=== PATIENT | female | born 1950 | race Caucasian/White ===

== ENCOUNTER → 2020-12-29 | Outpatient (CLI) | payer MEDICARE, OTHER ==
--- NOTE | 2020-12-29 12:09 | 2DMMODE ---
[place] [id number] 2 D/M-MODE ECHOCARDIOGRAM Name: JJ RAMIREZ Room: [facility].#: [id number] Admission: 12/29/20 Attend Phys: Monae Garcia DO Discharge: Date of : 54 Date of Service: 12/29/20 1208 Report #: [id number] THIS REPORT FOR: cc: Monae Garcia Maggie M. DO Blick,Bharath Styles MD [facility] ~ APPROVED REPORT Study performed: 12/29/2020 11:46:29 EXAM: Comprehensive 2D, Doppler, and color-flow Echocardiogram/ Bubble Study Patient Location: Out-Patient BSA: 2.12 HR: 82 bpm BP: 123/80 mmHg Other Information Study Quality: Fair Indications TIA Echo Enhancing Agent Indication: Rule out Shunt Agent(s) / Amount(s) Used: Agitated Saline 10 cc 2D Dimensions IVSd: 11.16 (7-11mm) LVOT Diam: 20.94 (18-24mm) LVDd: 51.81 mm PWd: 9.57 (7-11mm) Ascending Ao: 28.99 (22-36mm) LVDs: 37.56 (25-40mm) Aortic Root: 28.83 mm Volumes Left Atrial Volume (Systole) LA ESV Index: 30.80 mL/m2 Aortic Valve AoV Peak Morgan.: 1.14 m/s AO Peak Gr.: 5.22 mmHg LVOT Max P.71 mmHg AO Mean Gr.: 3.18 mmHg LVOT Mean P.35 mmHg LVOT Max V: 0.82 m/s AO V2 VTI: 22.63 cm LVOT Mean V: 0.53 m/[place] [address] 2 D/M-MODE ECHOCARDIOGRAM Name: JJ RAMIREZ Room: [facility] Kevin#: [id number] Admission: 12/29/20 Attend Phys: Monae Garcia DO Discharge: Date of : 54 Date of Service: 12/29/20 1208 Report #: [id number] DIANNA (VTI): 2.24 cm2 LVOT V1 VTI: 14.70 cm Mitral Valve E/A Ratio: 0.59 MV Decel. Time: 209.27 ms MV E Max Morgan.: 0.42 m/s MV PHT: 60.69 ms MVA (PHT): 3.63 cm2 TDI E/Lateral E': 6.00 E/Medial E': 7.00 Medial E' Morgan.: 0.06 m/s Lateral E' Morgan.: 0.07 m/s Pulmonary Valve PV Peak Morgan.: 0.79 m/s PV Peak Gr.: 2.52 mmHg Left Ventricle The left ventricle is normal size. There is normal LV segmental wall motion. There is normal left ventricular wall thickness. Left ventricular systolic function is normal. The left ventricular ejection fraction is within the normal range. LVEF is 55-60%. Grade I - abnormal relaxation pattern. Right Ventricle The right ventricle is normal size. The right ventricular systolic function is normal. Atria Left atrium is mildly dilated. Injection of bubbles documented no interatrial shunt. The right atrium size is normal. Aortic Valve The aortic valve is not well visualized. No aortic regurgitation is present. There is no aortic valvular stenosis. Mitral Valve The mitral valve is normal in structure. There is no mitral valve regurgitation noted. No evidence of mitral valve stenosis. Tricuspid Valve The tricuspid valve is normal in structure. There is no tricuspid valve regurgitation noted. Pulmonic Valve Pulmonic valve is not well visualized. [place] [address] 2 D/M-MODE ECHOCARDIOGRAM Name: JJ RAMIREZ Room: [facility] TIARA Brown#: [id number] Admission: 12/29/20 Attend Phys: Monae Garcia DO Discharge: Date of : 54 Date of Service: 12/29/20 1208 Report #: [id number] regurgitation. Great Vessels The aortic root is normal in size. IVC is normal in size and collapses >50% with inspiration. Pericardium There is no pericardial effusion. <Conclusion> LVEF is 55-60%. Injection of bubbles documented no interatrial shunt. Left atrium is mildly dilated. <ELECTRONICALLY SIGNED> By: Bharath Puente MD, FACC 12/29/208 07 07 Bharath Puente MD, FACC /INF
== END ==
LOC: M.CRD 10:33
PROVIDERS: ATTEND Family Medicine
DX: I51.7 Cardiomegaly (principal); G45.9 Transient cerebral ischemic attack, unspecified